=== PATIENT | female | born 1990 | race Caucasian/White ===

== ENCOUNTER 2016-04-05 10:50 | Emergency (ER) | payer MEDICAID ==
[2016-04-05 11:00] VITALS: RESP 16; TEMP 97.9
[2016-04-05] MEDS ORDERED: IBUPROFEN 600 MG TAB PO ONE (13:27)
--- NOTE | 2016-04-05 14:31 | EDPHY ---
H & P Stated Complaint: jaw wont open Time Seen by Provider: 04/05/16 14:26 HPI/ROS: CHIEF COMPLAINT: HISTORY OF PRESENT ILLNESS: The patient is a 26 year old female presenting with REVIEW OF SYSTEMS: Aside from elements discussed in the HPI, a comprehensive 10-point review of systems was reviewed and is negative. PAST MEDICAL HISTORY: SOCIAL HISTORY: VITAL SIGNS: Reviewed by me GENERAL: Well-developed, well-nourished, resting comfortably in no respiratory distress. HEENT: Atraumatic. Eyes: No icterus, no injection. Mouth: moist mucous membranes. No erythema or lesions. Neck: supple with no adenopathy. LUNGS: Clear to auscultation bilaterally, no wheezes, rhonchi or rales. CARDIAC: Regular rate and rhythm, no rubs, murmurs or gallops. ABDOMEN: Soft, nontender, nondistended, bowel sounds normal. BACK: No CVA tenderness. EXTREMITIES: No trauma. No edema. Range of motion is normal throughout. NEURO: Alert and oriented, grossly nonfocal. SKIN: Warm and dry, no rash. PSYCHIATRIC: Normal mentation, no agitation. Portions of this note were transcribed by a medical technologist. I personally performed a history, physical exam, medical decision making, and confirmed accuracy of information the transcribed note. - Personal History LMP (Females 10-55): 8-14 Days Ago Current Tetanus/Diphtheria Vaccine: Yes Tetanus Vaccine Date: 2005 - Medical/Surgical History Hx Asthma: No Hx Chronic Respiratory Disease: No Hx Diabetes: No Hx Cardiac Disease: No Hx Renal Disease: No Hx Cirrhosis: No Hx Alcoholism: No Hx HIV/AIDS: No Hx Splenectomy or Spleen Trauma: No Other PMH: sinusitis. 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 menstrual cramps/chronic abd pain. fx sacrum in 2008, gastritis, ?endometrosis - Social History Smoking Status: Former smoker Constitutional: Initial Vital Signs Temperature (C) 36.6 C 04/05/16 10:57 Heart Rate 89 04/05/16 10:57 Respiratory Rate 16 04/05/16 10:57 Blood Pressure 98/77 L 04/05/16 10:57 O2 Sat (%) 95 04/05/16 10:57 O2 Delivery Mode Room Air Allergies/Adverse Reactions: cefaclor [From Ceclor] Allergy (Mild, Verified 04/05/16 10:56) Rash Home Medications: Medication Instructions Recorded Acyclovir 02/01/16 Dicyclomine HCl 02/08/16 IBUPROFEN 02/08/16 Medical Decision Making - Data Points Medications Given: Discontinued Medications Ibuprofen (Motrin) 600 mg PO EDNOW ONE Stop: 04/05/16 13:28 Last Admin: 04/05/16 13:29 Dose: 600 mg
--- NOTE | 2016-04-05 14:52 | EDPHY ---
H & P Time Seen by Provider: 04/05/16 14:26 HPI/ROS: CHIEF COMPLAINT: Jaw tightness. HISTORY OF PRESENT ILLNESS: The patient is a 26-year-old female who presents with jaw tightness since last night. The tightness began after she had a bad panic attack. She admits associated moderate jaw pain and the pain is worsened when she tries to open her mouth. She does state that her jaw "comes out of place whenever I open it." She feels better now after ibuprofen. She denies headache, vomiting, dizziness, fever, or other complaints at this time. Past Medical/Surgical History: Sinusitis, gastritis, herpes, hernia repair. Social History: Former smoker. Smoking Status: Former smoker Physical Exam: General Appearance: Alert, no distress Eyes: Pupils equal and round, no conjunctival pallor ENT, Mouth: able to open the mouth fully, there is a clicking sound when she opens her mouth, tenderness over the temporalis musculature bilaterally, Mucous membranes moist Neck: Normal inspection, no tenderness or neck adenopathy Respiratory: Lungs are clear to auscultation Cardiovascular: Regular rate and rhythm Neurological: A&O, nonfocal, normal gait Skin: Warm and dry, no rash Psychiatric: Mood and affect normal Constitutional: Initial Vital Signs Temperature (C) 36.6 C 04/05/16 10:57 Heart Rate 89 04/05/16 10:57 Respiratory Rate 16 04/05/16 10:57 Blood Pressure 98/77 L 04/05/16 10:57 O2 Sat (%) 95 04/05/16 10:57 O2 Delivery Mode Room Air Allergies/Adverse Reactions: cefaclor [From Ceclor] Allergy (Mild, Verified 04/05/16 10:56) Rash Home Medications: Medication Instructions Recorded Acyclovir 02/01/16 Dicyclomine HCl 02/08/16 IBUPROFEN 02/08/16 Medical Decision Making - Diagnostics Imaging: Mandible x-ray reviewed by me and radiology reveals no dislocation. ED Course/Re-evaluation: No evidence of mandible dislocation. - Data Points Medications Given: Discontinued Medications Ibuprofen (Motrin) 600 mg PO EDNOW ONE Stop: 04/05/16 13:28 Last Admin: 04/05/16 13:29 Dose: 600 mg Departure - Departure Disposition: Home, Routine, Self-Care Clinical Impression: Jaw Tightness Condition: Good Instructions: Temporomandibular Disorder (ED) Additional Instructions: Eat soft foods for the next 48 hours. Take 600mg Ibuprofen every 6-8 hours as needed for jaw pain. Follow up with your primary care provider tomorrow for reevaluation and to connect with an oral surgeon. Return to the emergency department for serious worsening of condition. Referrals: Claire Calixto NP [Primary Care Provider] - As per Instructions Report Scribed for: Jessica Raygoza Report Scribed by: Silvano Mahajan Date of Report: 04/05/16 Time of Report: 14:51 Physician Review and Approval Statement: 04/05/16 14:52 Portions of this note were transcribed by a medical scheduler. I personally performed a history, physical exam, medical decision making, and confirmed accuracy of information the transcribed note.
[2016-04-05 15:24] VITALS: BP 121/93; PULSE 92; O2SAT 96
--- NOTE | 2016-04-05 15:38 | DX ---
Mandible - 4 views Indication: Jaw popping. Findings: The mandible is anatomically aligned. No dislocation. No fracture or bone lesion. Condyles are normally formed. The nasal septum is deviated to the left. The paranasal sinuses are otherwise c lear. IMPRESSION: Normal mandible alignment. No dislocation or arthropathy. Comment: Results were called to Dr. Jessica Raygoza shortly after study completion.
== END 2016-04-05 15:23 | disposition home or self-care (01) ==
DX: M62.89 Other specified disorders of muscle (principal); Z87.891 Personal history of nicotine dependence

== ENCOUNTER 2016-04-24 14:41 | Emergency (ER) | payer MEDICAID ==
[2016-04-24 14:49] VITALS: TEMP 97.7; O2SAT 96
[2016-04-24] MEDS ORDERED: LORazepam 1 MG TAB ONE (15:14)
[2016-04-24] MEDS ORDERED: LORazepam 1 MG TAB PO ONE (15:17)
--- NOTE | 2016-04-24 15:38 | EDPHY ---
HPI/HX/ROS/PE/MDM Narrative: Chief complaint: Anxiety HPI: Patient has been having increasing anxiety this week. Patient states she has a history anxiety and carmen which she has been self medicating with marijuana stranding. The marijuana use. [facility] he is feeling very anxious. PAtient states she has been having increasing anxiety this week has been arguing with her boyfriend today today she woke up feeling very shaky and anxious like she is having a panic attack. Mental [facility] and [facility] staff there began getting even more anxious feeling. They brought her over for evaluation. PAtient states that she is having some vague suicidal thoughts but does not feel she will act on it. She has no plan. More has a feeling of feeling that she just does not want to be in this situation but she does not want to . NO homicidal ideation. No hallucinations. ROS: Ten point review of systems is negative except as noted in HPI physical exam: Gen: Awake, Alert, No Distress, Anxious appearing HEENT: Ears: Bilateral TMs are normal, no erythema or bulging. External auditory canals are clear. Nose: no rhinorrhea Eyes: PERRLA, EOMI Mouth: Moist mucosa Neck: Supple, no JVD Chest: nontender, lungs clear to auscultation Heart: S1, S2 normal, no murmur Abd: Soft, non-tender, no guarding Back: no CVA tenderness, no midline tenderness Ext: no edema, non-tender Skin: no rash Neuro: CN II-XII intact, Sensation grossly intact, Strength 5/5 in bilateral upper and lower extremities ED Course: 26-year-old presenting with anxiety reaction. Patient is not currently suicidal and is christy for safety. Plan will be to give her some Ativan here. [facility] They have indicated that when she is feeling better they will be happy to take her back to continue evaluation and counseling. 1745 patient is feeling much better after medication. She is calm and relaxed. Denies being suicidal at this time. Would like to go back to [facility] for further evaluation. She does not currently meet criteria for mental health hold. Will contact crisis Center to make sure that they are happy to take her back. If sexual back for further evaluation. - Data Points Medications Given: Discontinued Medications Lorazepam (Ativan) 1 mg PO EDNOW ONE Stop: 04/24/16 15:18 Last Admin: 04/24/16 15:17 Dose: 1 mg General Time Seen by Provider: 04/24/16 15:15 Initial Vital Signs: Initial Vital Signs Temperature (C) 36.5 C 04/24/16 14:46 Heart Rate 105 H 04/24/16 14:46 Respiratory Rate 18 04/24/16 14:46 Blood Pressure 120/86 H 04/24/16 14:46 O2 Sat (%) 96 04/24/16 14:46 O2 Delivery Mode Room Air Allergies/Adverse Reactions: cefaclor [From Ceclor] Allergy (Mild, Verified 04/05/16 10:56) Rash Home Medications: Medication Instructions Recorded Dicyclomine HCl 02/08/16 Departure - Departure Disposition: Home, Routine, Self-Care Clinical Impression: Anxious reaction Condition: Good Instructions: Anxiety (ED) Additional Instructions: [facility] for further evaluation. Return to the emergency department immediately for increasing anxiety, depression, feelings of suicidal, hallucinations, or any other concerns. Referrals: [place],. [Primary Care Provider] - As per Instructions [facility] [Outside] - As per Instructions
[2016-04-24] MEDS ORDERED: LORAZEPAM 1 MG PREPACK#4 BTL TAKEHOME ONE ×2 (18:34)
[2016-04-24 18:45] VITALS: BP 116/89; PULSE 100; RESP 16
== END 2016-04-24 18:45 | disposition home or self-care (01) ==
DX: F41.1 Generalized anxiety disorder (principal)

== ENCOUNTER 2016-04-29 03:06 | Emergency (ER) | payer MEDICAID ==
[2016-04-29 03:11] VITALS: RESP 16
[2016-04-29] MEDS ORDERED: KETOROLAC 30 MG/1 ML SDV IVP ONE (03:25)
[2016-04-29] MEDS ORDERED: NS 1,000 ML IV ONE (04:00)
--- NOTE | 2016-04-29 04:18 | EDPHY ---
H & P Stated Complaint: c/o bilat LQ pain since yesterday am, having frequency/ urgency as well Time Seen by Provider: 04/29/16 03:16 HPI/ROS: Chief complaint: Low abdominal pain, urinary frequency HPI: 26-year-old female with a history of endometriosis currently on day 3 of her menstrual cycle complaining of low abdominal cramping similar to prior episodes. Last took any medications about 9 o'clock at night. No nausea or vomiting. No diarrhea. Patient did state she woke up and she felt some increasing cramping. She started to breathe heavily is an rapidly, felt cramping in her hands and some numbness around her mouth. Also began feeling a little lightheaded at that time. Patient states that she has had some urinary frequency for the last 2 days. Has had some burning with urination as well. Otherwise her pain feels the same as her prior episodes of menstrual cramping. ROS: 10 point Review of Systems is negative except as noted in the HPI. Physical exam: Gen: Awake, Alert, No Distress HEENT: Ears: Bilateral TMs are normal, no erythema or bulging. External auditory canals are clear. Nose: no rhinorrhea Eyes: PERRLA, EOMI Mouth: Moist mucosa Neck: Supple, no JVD Chest: nontender, lungs clear to auscultation Heart: S1, S2 normal, no murmur Abd: Soft, mild bilateral lower abdominal tenderness with uterine tenderness, minimal bilateral adnexal tenderness without fullness or mass. No tenderness in the upper abdomen. No tenderness at McBurney's point., no guarding Back: no CVA tenderness, no midline tenderness Ext: no edema, non-tender Skin: no rash Neuro: CN II-XII intact, Sensation grossly intact, Strength 5/5 in bilateral upper and lower extremities - Personal History Tetanus Vaccine Date: 2005 - Medical/Surgical History Hx Asthma: No Hx Chronic Respiratory Disease: No Hx Diabetes: No Hx Cardiac Disease: No Hx Renal Disease: No Hx Cirrhosis: No Hx Alcoholism: No Hx HIV/AIDS: No Hx Splenectomy or Spleen Trauma: No Other PMH: sinusitis. 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 menstrual cramps/chronic abd pain. fx sacrum in 2008, gastritis, ?endometrosis - Social History Smoking Status: Former smoker Constitutional: Initial Vital Signs Temperature (C) 36.7 C 04/29/16 03:08 Heart Rate 59 L 04/29/16 03:08 Respiratory Rate 16 04/29/16 03:08 Blood Pressure 103/71 04/29/16 03:08 O2 Sat (%) 93 04/29/16 03:08 O2 Delivery Mode Room Air Allergies/Adverse Reactions: cefaclor [From Ceclor] Allergy (Mild, Verified 04/29/16 03:11) Rash Home Medications: Medication Instructions Recorded Dicyclomine HCl 02/08/16 Acyclovir 04/29/16 BENADRYL 04/29/16 Medical Decision Making ED Course/Re-evaluation: 26-year-old with a history of chronic menstrual pain, multiple presentations in the past. Patient states she is same pain as she has frequently however this time she has some urinary symptoms of burning with urination and frequency. Will check urinalysis. Will give IV anti-inflammatories and reassess. - Data Points Laboratory Results: 04/29/16 03:27 Urine Color YELLOW Urine Appearance MODERATELY TURBID Urine pH 5.0 (5.0-7.5) Ur Specific [place] 1.024 (1.002-1.030) Urine Protein 1+ H (NEGATIVE) Urine Ketones NEGATIVE (NEGATIVE) Urine Blood 3+ H (NEGATIVE) Urine Nitrate NEGATIVE (NEGATIVE) Urine Bilirubin NEGATIVE (NEGATIVE) Urine Urobilinogen NEGATIVE EU EU (0.2-1.0) Ur Leukocyte Esterase 2+ H (NEGATIVE) Urine RBC 5-10 /hpf H /hpf (0-3) Urine WBC 15-25 /hpf H /hpf (0-3) Ur Epithelial Cells 2+ /lpf H /lpf (NONE-1+) Urine Bacteria TRACE /hpf H /hpf (NONE SEEN) Urine Mucus 2+ /lpf H /lpf (NONE-1+) Urine Glucose NEGATIVE (NEGATIVE) Medications Given: Discontinued Medications Sodium Chloride (Ns) 1,000 mls @ 0 mls/hr IV ONCE ONE PRN Reason: Wide Open Stop: 04/29/16 04:01 Last Admin: 04/29/16 04:00 Dose: 1,000 mls Ketorolac Tromethamine (Toradol) 30 mg IVP EDNOW ONE Stop: 04/29/16 03:26 Last Admin: 04/29/16 03:45 Dose: 30 mg Departure - Departure Disposition: Home, Routine, Self-Care Clinical Impression: Dysmenorrhea Condition: Good Instructions: Dysmenorrhea (ED) Additional Instructions: Follow up with her lens inspector or primary care physician in next 2-3 days for re- evaluation. Referrals: Claire Calixto NP [Primary Care Provider] - As per Instructions
[2016-04-29 04:48] LABS: COLOR YELLOW; LEUKOCYTE ESTERASE,URINE 2+ (NEGATIVE); NITRITE,URINE NEGATIVE (NEGATIVE)
[2016-04-29 04:49] LABS: BACTERIA TRACE /hpf (NONE SEEN); MUCUS 2+ /lpf (NONE-1+); WBC,URINE 15-25 /hpf (0-3)
[2016-04-29 05:11] VITALS: BP 92/50; PULSE 66; TEMP 97.7; O2SAT 97
== END 2016-04-29 05:40 | disposition home or self-care (01) ==
LOC: EDUNIT#
DX: N94.6 Dysmenorrhea, unspecified (principal); Z87.891 Personal history of nicotine dependence
CPT/HCPCS: 96374; J1885

== ENCOUNTER 2016-05-24 12:05 | Emergency (ER) | payer MEDICAID ==
[2016-05-24 12:47] LABS: % IMMATURE GRANULYOCYTES 0.2 % (0.0-1.1); ABSOLUTE IMMATURE GRANULOCYTES 0.02 10^3/uL (0.00-0.10); ADD DIFF? NO; ADD MORPH? NO; ADD SCAN? NO; ATYPICAL LYMPHOCYTE FLAG 20 (0-99); FRAGMENT RBC FLAG 0 (0-99); HEMATOCRIT 36.8 % (38.0-47.0); HEMOGLOBIN 12.5 g/dL (12.6-16.3); LEFT SHIFT FLG 0 (0-99); LIPEMIA HEMOLYSIS FLAG 90 (0-99); MEAN CELL HEMOGLOBIN 30.7 pg (27.9-34.1); MEAN CELL VOLUME 90.4 fL (81.5-99.8); PLATELET CLUMPS FLAG 10 (0-99); PLATELET COUNT 236 10^3/uL (150-400); RED BLOOD CELL COUNT 4.07 10^6/uL (4.18-5.33); RED CELL DISTRIBUTION WIDTH 12.6 % (11.5-15.2)
[2016-05-24 13:01] LABS: ANION GAP 11 mEq/L (8-16); CALCIUM 9.4 mg/dL (8.5-10.4); CARBON DIOXIDE 22 mEq/l (22-31); CHLORIDE 108 mEq/L (97-110); CREATININE 0.7 mg/dL (0.6-1.0); GLOMERULAR FILTRATION RATE > 60; GLUCOSE 84 mg/dL (70-100); POTASSIUM 4.2 mEq/L (3.5-5.2); SODIUM 141 mEq/L (134-144)
[2016-05-24] MEDS ORDERED: KETOROLAC 30 MG/1 ML SDV IVP ONE (13:27)
[2016-05-24 13:46] LABS: COLOR PALE YELLOW; LEUKOCYTE ESTERASE,URINE NEGATIVE (NEGATIVE); NITRITE,URINE NEGATIVE (NEGATIVE)
[2016-05-24 13:54] LABS: BACTERIA TRACE /hpf (NONE SEEN); RBC,URINE NONE SEEN /hpf (0-3); WBC,URINE NONE SEEN /hpf (0-3)
--- NOTE | 2016-05-24 14:07 | EDPHY ---
H & P Stated Complaint: lower abdo and back pain, thinks she has an ovarian cyst. Time Seen by Provider: 05/24/16 12:18 HPI/ROS: Chief complaint: Pelvic pain History of present illness: 26-year-old female presents to the emergency department for evaluation of pelvic pain. Patient reports the onset of symptoms over the last day. She reports pain on both the left and right side. She denies precipitating events. She denies alleviating factors. She denies other associated signs or symptoms including no fevers, no nausea, vomiting or diarrhea, no urinary symptoms, no abnormal vaginal discharge. She has had similar pain multiple times in the past. Reports she has been diagnosed with endometriosis. However she is concerned this is more than endometriosis, possibly an ovarian cyst. She is requesting Toradol for pain management. Review of systems: A 10 point review of systems was obtained and other than described above was negative - Personal History LMP (Females 10-55): Now Tetanus Vaccine Date: 2005 - Medical/Surgical History Hx Asthma: No Hx Chronic Respiratory Disease: No Hx Diabetes: No Hx Cardiac Disease: No Hx Renal Disease: No Hx Cirrhosis: No Hx Alcoholism: No Hx HIV/AIDS: No Hx Splenectomy or Spleen Trauma: No Other PMH: sinusitis. 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 menstrual cramps/chronic abd pain. fx sacrum in 2008, gastritis, ?endometrosis - Social History Smoking Status: Never smoked - Physical Exam Exam: General Appearance: Alert, nontoxic. Eyes: Pupils equal and round no pallor or injection. ENT, Mouth: Mucous membranes moist. Respiratory: There are no retractions, lungs are clear to auscultation. Cardiovascular: Regular rate and rhythm. Gastrointestinal: Abdomen is soft and nontender, no masses, bowel sounds normal. Genitourinary: No CVA tenderness. Neurological: Alert and oriented. Strength and sensation intact and symmetrical. Skin: Warm and dry, no rashes. Musculoskeletal: Neck is supple nontender. Extremities are symmetrical, full range of motion. Psychiatric: Patient is oriented X 3, there is no agitation. Constitutional: Initial Vital Signs Temperature (C) 36.6 C 05/24/16 12:08 Heart Rate 75 05/24/16 12:08 Respiratory Rate 16 05/24/16 12:08 Blood Pressure 107/77 05/24/16 12:08 O2 Sat (%) 96 05/24/16 12:08 O2 Delivery Mode Room Air Allergies/Adverse Reactions: cefaclor [From Ceclor] Allergy (Mild, Verified 04/29/16 03:11) Rash Home Medications: Medication Instructions Recorded Dicyclomine HCl 02/08/16 Acyclovir 04/29/16 BENADRYL 04/29/16 Medical Decision Making - Diagnostics Imaging: Pelvic ultrasound shows a dominant follicle/left ovarian cyst in the left ovary ED Course/Re-evaluation: Patient seen under the supervision of my secondary supervising physician Dr. Pedro Sterling. Patient presents to the emergency department with pelvic pain. She has a history of similar problems thought to be secondary to endometriosis. However this is worse than usual and she is concerned that this is more than endometriosis. She is nontoxic. Vital signs are stable. Physical exam is benign. Blood studies and urinalysis unremarkable. Questionable ovarian cyst on left ovary without complications on ultrasound. Patient is given Toradol. I do not appreciate need for further emergency department intervention or inpatient management. Patient is discharged home. Asked to follow up with her primary care doctor for recheck. Return precautions are given. - Data Points Laboratory Results: Laboratory Results 05/24/16 12:35 05/24/16 12:35 05/24/16 05/24/16 05/24/16 13:35 12:35 12:35 WBC RBC Hgb Hct MCV MCH MCHC RDW Plt Count MPV Neut % (Auto) Lymph % (Auto) [place] % (Auto) Eos % (Auto) Baso % (Auto) Nucleat RBC Rel Count Absolute Neuts (auto) Absolute Lymphs (auto) Absolute Monos (auto) Absolute Eos (auto) Absolute Basos (auto) Absolute Nucleated RBC Immature Gran % Immature Gran # Sodium 141 mEq/L mEq/L (134-144) Potassium 4.2 mEq/L mEq/L (3.5-5.2) Chloride 108 mEq/L mEq/L (97-110) Carbon Dioxide 22 mEq/l mEq/l (22-31) Anion Gap 11 mEq/L mEq/L (8-16) BUN 10 mg/dL mg/dL (7-23) Creatinine 0.7 mg/dL mg/dL (0.6-1.0) Estimated GFR > 60 Glucose 84 mg/dL mg/dL (70-100) Calcium 9.4 mg/dL mg/dL (8.5-10.4) Beta HCG, Qual NEGATIVE Urine Color PALE YELLOW Urine Appearance CLEAR Urine pH 5.0 (5.0-7.5) Ur Specific [place] 1.008 (1.002-1.030) Urine Protein NEGATIVE (NEGATIVE) Urine Ketones NEGATIVE (NEGATIVE) Urine Blood 3+ H (NEGATIVE) Urine Nitrate NEGATIVE (NEGATIVE) Urine Bilirubin NEGATIVE (NEGATIVE) Urine Urobilinogen NEGATIVE EU EU (0.2-1.0) Ur Leukocyte Esterase NEGATIVE (NEGATIVE) Urine RBC NONE SEEN /hpf /hpf (0-3) Urine WBC NONE SEEN /hpf /hpf (0-3) Ur Epithelial Cells TRACE /lpf /lpf (NONE-1+) Urine Bacteria TRACE /hpf H /hpf (NONE SEEN) Ur Culture Indicated? NOT INDICATED (NI) Urine Glucose NEGATIVE (NEGATIVE) 05/24/16 12:35 WBC 8.11 10^3/uL 10^3/uL (3.80-9.50) RBC 4.07 10^6/uL L 10^6/uL (4.18-5.33) Hgb 12.5 g/dL L g/dL (12.6-16.3) Hct 36.8 % L % (38.0-47.0) MCV 90.4 fL fL (81.5-99.8) MCH 30.7 pg pg (27.9-34.1) MCHC 34.0 g/dL g/dL (32.4-36.7) RDW 12.6 % % (11.5-15.2) Plt Count 236 10^3/uL 10^3/uL (150-400) MPV 11.0 fL fL (8.7-11.7) Neut % (Auto) 65.2 % % (39.3-74.2) Lymph % (Auto) 28.0 % % (15.0-45.0) [place] % (Auto) 4.9 % % (4.5-13.0) Eos % (Auto) 1.5 % % (0.6-7.6) Baso % (Auto) 0.2 % L % (0.3-1.7) Nucleat RBC Rel Count 0.0 % % (0.0-0.2) Absolute Neuts (auto) 5.28 10^3/uL 10^3/uL (1.70-6.50) Absolute Lymphs (auto) 2.27 10^3/uL 10^3/uL (1.00-3.00) Absolute Monos (auto) 0.40 10^3/uL 10^3/uL (0.30-0.80) Absolute Eos (auto) 0.12 10^3/uL 10^3/uL (0.03-0.40) Absolute Basos (auto) 0.02 10^3/uL 10^3/uL (0.02-0.10) Absolute Nucleated RBC 0.00 10^3/uL 10^3/uL (0-0.01) Immature Gran % 0.2 % % (0.0-1.1) Immature Gran # 0.02 10^3/uL 10^3/uL (0.00-0.10) Sodium Potassium Chloride Carbon Dioxide Anion Gap BUN Creatinine Estimated GFR Glucose Calcium Beta HCG, Qual Urine Color Urine Appearance Urine pH Ur Specific [place] Urine Protein Urine Ketones Urine Blood Urine Nitrate Urine Bilirubin Urine Urobilinogen Ur Leukocyte Esterase Urine RBC Urine WBC Ur Epithelial Cells Urine Bacteria Ur Culture Indicated? Urine Glucose Medications Given: Discontinued Medications Ketorolac Tromethamine (Toradol) 30 mg IVP EDNOW ONE Stop: 05/24/16 13:28 Last Admin: 05/24/16 13:39 Dose: 30 mg Departure - Departure Disposition: Home, Routine, Self-Care Clinical Impression: Ovarian cyst Qualifiers: Laterality: left Qualified Code(s): N83.202 - Unspecified ovarian cyst, left side Condition: Good Instructions: Ovarian Cyst (ED) Additional Instructions: Follow-up with your primary care doctor for recheck this week If symptoms worsen or new symptoms develop return to the emergency department for recheck Referrals: CARMELO BUCKLEY [Other] - As per Instructions
[2016-05-24 14:21] VITALS: BP 99/61; PULSE 73; RESP 18; TEMP 98.2; O2SAT 98
== END 2016-05-24 14:26 | disposition home or self-care (01) ==
DX: N83.202 Unspecified ovarian cyst, left side (principal)
CPT/HCPCS: 96374; J1885

== ENCOUNTER 2016-05-25 11:15 | Emergency (ER) | payer MEDICAID ==
[2016-05-25 11:26] VITALS: TEMP 97.7; O2SAT 97
[2016-05-25 12:51] VITALS: BP 106/86; PULSE 71; RESP 18
[2016-05-25] MEDS ORDERED: KETOROLAC 30 MG/1 ML SDV IVP ONE (13:14)
--- NOTE | 2016-05-25 13:15 | EDPHY ---
H & P Stated Complaint: dx yesterday in ed with ovarian cyst/vag bleeding intractible pain Time Seen by Provider: 05/25/16 13:00 HPI/ROS: HPI: 26-year-old female with 27 ER visits since March 14 and and ER visit yesterday presents to the emergency department with chief concern painful period and lower pelvic discomfort. Denies fever, chills, myalgias, URI symptoms, shortness of breath, chest pain, nausea, vomiting, diarrhea, rash, urinary symptoms. Was evaluated in the emergency department yesterday. Pelvic and renal ultrasound were performed and did show a prominent left follicle but no significant cyst. Had a normal abdominal CT on June 18. Has a history of endometriosis and chronic abdominal pain. Primary care provider is Dr. larose at [facility]. She is on narcotic precautions. ROS:10 point review of systems is negative other than as stated in HPI Source: Patient Exam Limitations: No limitations - Personal History LMP (Females 10-55): Now Current Tetanus/Diphtheria Vaccine: Unsure Tetanus Vaccine Date: 2005 - Medical/Surgical History Hx Asthma: No Hx Chronic Respiratory Disease: No Hx Diabetes: No Hx Cardiac Disease: No Hx Renal Disease: No Hx Cirrhosis: No Hx Alcoholism: No Hx HIV/AIDS: No Hx Splenectomy or Spleen Trauma: No Other PMH: sinusitis. 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 menstrual cramps/chronic abd pain. fx sacrum in 2008, gastritis, ?endometrosis - Family History Significant Family History: No pertinent family hx - Social History Smoking Status: Never smoked Alcohol Use: Rarely Drug Use: Other (Unknown) - Physical Exam Exam: Vital signs stable, reviewed by me General: Awake, alert, calm, cooperative. No acute distress. Head: Normalocephalic. Atraumatic. EENT: PERRLA. EOMI. No pallor or injection. Anicteric. No nystagmus. No injection. Respiratory: Breathing unlabored. Breath sounds equal bilaterally and clear to auscultation. No adventitious sounds. CV: Chest nontender, atraumatic. Heart rate regular. No murmur, distal pulses 2+ bilaterally. Brisk cap refill all extremities. GI: Abdomen soft, generalized tenderness. No right lower quadrant or right upper quadrant tenderness. Bowel sounds normoactive and positive x4 quadrants. : No CVA or flank tenderness. Neuro: Alert. Oriented x 3. Speech clear. Nonfocal cranial nerves throughout. Sensation intact all extremities. Skin: Skin warm, dry, intact. Extremities: Full range of motion in all 4 extremities. Strength 5+ all extremities. Constitutional: Initial Vital Signs Temperature (C) 36.5 C 05/25/16 11:24 Heart Rate 73 05/25/16 11:24 Respiratory Rate 20 05/25/16 11:24 Blood Pressure 106/83 H 05/25/16 11:24 O2 Sat (%) 97 05/25/16 11:24 O2 Delivery Mode Room Air Allergies/Adverse Reactions: cefaclor [From Ceclor] Allergy (Mild, Verified 05/25/16 11:23) Rash Home Medications: Medication Instructions Recorded Dicyclomine HCl 02/08/16 Acyclovir 04/29/16 BENADRYL 04/29/16 Medical Decision Making ED Course/Re-evaluation: 26-year-old female presents to emergency department with ongoing a lower pelvic and abdominal pain. She is on day 3 of her period. Has a history of endometriosis and chronic abdominal pain. Was evaluated in the emergency department yesterday with a unremarkable pelvic and renal ultrasound. Urinalysis negative for UTI yesterday. H&H was 12.5/36.8, her BUN and creatinine were 10 and 0.7. She has a follow-up appointment with her primary care provider tomorrow at [facility]. She returns for ongoing lower pelvic and abdominal discomfort. She is given 30 mg IV Toradol. I will not give her narcotics as she is on a narcotic precautions list for the hospital. She has been counseled regarding this. She has been advised to follow up as planned with primary care tomorrow. Differential Diagnosis: Differential diagnosis includes but is not limited to dysmenorrhea, endometriosis, drug-seeking behavior, malingering Departure - Departure Disposition: Home, Routine, Self-Care Clinical Impression: Dysmenorrhea Condition: Good Instructions: Dysmenorrhea (ED) Additional Instructions: Please follow up in the morning with Dr. Solomon as scheduled You were given given 30 mg IV Toradol here in the emergency department No ibuprofen until 7:00 p.m. Recommend heating pad for the abdomen Referrals: CARMELO SOLOMON [Other] - As per Instructions
[2016-05-25] MEDS ORDERED: KETOROLAC 30 MG/1 ML SDV IM ONE (13:43)
== END 2016-05-25 13:58 | disposition home or self-care (01) ==
DX: N94.6 Dysmenorrhea, unspecified (principal)
CPT/HCPCS: J1885

== ENCOUNTER 2016-07-18 15:13 | Emergency (ER) | payer MEDICAID ==
[2016-07-18 15:18] VITALS: RESP 16
--- NOTE | 2016-07-18 15:22 | EDPHY ---
H & P Time Seen by Provider: 07/18/16 15:20 HPI/ROS: Chief complaint. Head injury HPI. 26-year-old female with head injury. It occurred 2 and 0.5 hours ago. She was at work and she stood up and hit her head on a metal shelf. She had a metallic taste that went through her body. No loss of consciousness. No neck pain. She feels slightly disoriented. Slight nausea. No bumps were cut to the head ROS Constitutional. no fever/chills, no weakness Eyes. no problems with vision ENT. no sore throat, no nasal drainage Cardiovascular. no chest pain Respiratory. no shortness of breath, no cough Abdominal. no abdominal pain, no nausea/vomiting, no diarrhea . no problems urinating MS. no calf pain/swelling, no neck/back pain, no joint pain Skin. no rash Lymph. no swollen glands Neuro. Slightly dizzy Past Medical/Surgical History: Past medical history significant for endometriosis, sacrum fracture, chronic abdominal pain, sinusitis Social History: Single, nonsmoker, no alcohol Smoking Status: Never smoked Physical Exam: General Appearance: Alert well-developed female mild distress vital signs stable. She is conversational Eyes: Pupils equal and round no pallor or injection. ENT, no hemotympanum or Herron sign. No bumps for cut to the scalp. Respiratory: There are no retractions, lungs are clear to auscultation. Cardiovascular: Regular rate and rhythm. Gastrointestinal: Abdomen is soft and nontender, no masses, bowel sounds normal. Neurological: Awake and alert, sensory and motor exams grossly normal. Speech is normal and conversational. Cranial nerves are intact. There is no pronator drift. Pcyrch-[id number] and [id number] and narrow based gait are intact Skin: Warm and dry, no rashes. Musculoskeletal: Neck is supple nontender. Extremities symmetrical, full range of motion. Psychiatric: Patient is oriented X 3, there is no agitation. Constitutional: Initial Vital Signs Temperature (C) 36.7 C 07/18/16 15:16 Heart Rate 102 H 07/18/16 15:16 Respiratory Rate 16 07/18/16 15:16 Blood Pressure 120/85 H 07/18/16 15:16 O2 Sat (%) 97 07/18/16 15:16 O2 Delivery Mode Room Air Allergies/Adverse Reactions: cefaclor [From [facility]] Allergy (Mild, Verified 05/25/16 11:23) Rash Medical Decision Making Procedures: Tylenol and Zofran given ED Course/Re-evaluation: Re-evaluation and patient remained stable and conversational and neurologically intact Patient and I discussed head injury precautions, treatment plan, criteria for return. She expresses understanding and agreement Differential Diagnosis: I considered head contusion, skull fracture, intracranial bleeding, concussion Departure - Departure Disposition: Home, Routine, Self-Care Clinical Impression: Head contusion Qualifiers: Encounter type: initial encounter Contusion of head detail: scalp Qualified Code(s): S00.03XA - Contusion of scalp, initial encounter Condition: Good Instructions: Head Injury (ED) Additional Instructions: Tylenol every 4-6 hours as needed for headache. Return for worsening headache, vomiting, confusion. Recheck in 2 days if not improved Referrals: AMRIT SOLOMON [Other] - 2-3 days, if not improved
[2016-07-18] MEDS ORDERED: ONDANSETRON DISINTEGRATING 4 MG TAB PO ONE (15:35)
[2016-07-18] MEDS ORDERED: ACETAMINOPHEN 500 MG TAB PO ONE (15:35)
[2016-07-18 15:50] VITALS: BP 128/79; PULSE 80; TEMP 97.9; O2SAT 96
== END 2016-07-18 15:46 | disposition home or self-care (01) ==
DX: S00.03XA Contusion of scalp, initial encounter (principal); W22.8XXA Striking against or struck by other objects, initial encounter; Y92.69 Other specified industrial and construction area as the place of occurrence of the external cause; Y99.0 Civilian activity done for income or pay; Y93.89 Activity, other specified

== ENCOUNTER 2016-08-23 12:41 | Emergency (ER) | payer MEDICAID ==
[2016-08-23 12:51] VITALS: RESP 16; TEMP 97.7
[2016-08-23 13:21] LABS: % IMMATURE GRANULYOCYTES 0.2 % (0.0-1.1); ABSOLUTE IMMATURE GRANULOCYTES 0.02 10^3/uL (0.00-0.10); ADD DIFF? NO; ADD MORPH? NO; ADD SCAN? NO; ATYPICAL LYMPHOCYTE FLAG 10 (0-99); FRAGMENT RBC FLAG 0 (0-99); HEMATOCRIT 37.7 % (38.0-47.0); HEMOGLOBIN 13.1 g/dL (12.6-16.3); LEFT SHIFT FLG 0 (0-99); LIPEMIA HEMOLYSIS FLAG 90 (0-99); MEAN CELL HEMOGLOBIN 31.4 pg (27.9-34.1); MEAN CELL HEMOGLOBIN CONCENTR. 34.7 g/dL (32.4-36.7); MEAN CELL VOLUME 90.4 fL (81.5-99.8); MEAN PLATELET VOLUME 10.5 fL (8.7-11.7); PLATELET CLUMPS FLAG 0 (0-99); PLATELET COUNT 261 10^3/uL (150-400); RED BLOOD CELL COUNT 4.17 10^6/uL (4.18-5.33); RED CELL DISTRIBUTION WIDTH 12.4 % (11.5-15.2)
[2016-08-23 13:39] LABS: ALANINE AMINOTRANSFERASE 28 IU/L (9-52); ALBUMIN 4.5 g/dL (3.5-5.0); ALKALINE PHOSPHATASE 41 IU/L (38-126); ANION GAP 11 mEq/L (8-16); ASPARTATE AMINOTRANSFERASE 19 IU/L (14-46); BILIRUBIN,TOTAL 1.3 mg/dL (0.1-1.4); BILIRUBIN-CONJUGATED 0.2 mg/dL (0.0-0.5); BILIRUBIN-UNCONJUGATED 1.1 mg/dL (0.0-1.1); CALCIUM 9.3 mg/dL (8.5-10.4); CARBON DIOXIDE 19 mEq/l (22-31); CHLORIDE 108 mEq/L (97-110); CREATININE 0.7 mg/dL (0.6-1.0); GLOMERULAR FILTRATION RATE > 60; GLUCOSE 84 mg/dL (70-100); SODIUM 138 mEq/L (134-144); TOTAL PROTEIN 7.5 g/dL (6.3-8.2)
--- NOTE | 2016-08-23 13:54 | EDPHY ---
H & P Stated Complaint: RLQ abd pain, increased with breathing. Time Seen by Provider: 08/23/16 13:05 HPI/ROS: Chief complaint: Right-sided abdominal pain History of present illness: This is a 26-year-old female who presents to the emergency department for evaluation of right-sided abdominal pain. Patient reports the pain began a few days ago. It is a sharp pain. Is located in the upper aspect of the right side of the abdomen. It is intermittent in nature. She denies precipitating factors. She denies alleviating factors. She does states it is worse with certain movements. She denies other associated signs or symptoms including no fevers, chills or cold symptoms, no cough, no shortness of breath, no nausea or vomiting, no diarrhea or constipation, no urinary symptoms, no pain or swelling in the legs. Review of systems: A 10 point review of systems was obtained and other than described above was negative - Personal History LMP (Females 10-55): Now Current Tetanus/Diphtheria Vaccine: No Current Tetanus Diphtheria and Acellular Pertussis (TDAP): No Tetanus Vaccine Date: 2005 - Medical/Surgical History Hx Asthma: No Hx Chronic Respiratory Disease: No Hx Diabetes: No Hx Cardiac Disease: No Hx Renal Disease: No Hx Cirrhosis: No Hx Alcoholism: No Hx HIV/AIDS: No Hx Splenectomy or Spleen Trauma: No Other PMH: sinusitis. 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 menstrual cramps/chronic abd pain. fx sacrum in 2008, gastritis, ?endometrosis - Social History Smoking Status: Never smoked - Physical Exam Exam: General Appearance: Alert, nontoxic. Eyes: Pupils equal and round no pallor or injection. ENT, Mouth: Mucous membranes moist. Respiratory: There are no retractions, lungs are clear to auscultation. Cardiovascular: Regular rate and rhythm. Gastrointestinal: Bowel sounds are normal. Abdomen is soft, nondistended, nontender. No Woo sign. No McBurney's point tenderness. No peritoneal signs. Neurological: Alert and oriented x4. Strength and sensation intact and symmetrical. Skin: Warm and dry, no rashes. Musculoskeletal: Neck is supple non tender. Extremities are symmetrical, full range of motion. Psychiatric: Patient is oriented X 3, there is no agitation. Constitutional: Initial Vital Signs Temperature (C) 36.5 C 06/12/17 12:49 Heart Rate 90 08/23/16 12:49 Respiratory Rate 16 08/23/16 12:49 Blood Pressure 107/72 08/23/16 12:49 O2 Sat (%) 97 08/23/16 12:49 O2 Delivery Mode Room Air Allergies/Adverse Reactions: cefaclor [From Ceclor] Allergy (Mild, Verified 05/25/16 11:23) Rash Home Medications: Medication Instructions Recorded Cyclobenzaprine [Flexeril 10 MG 10 mg PO TID PRN #15 tab 08/23/16 (*)] Medical Decision Making ED Course/Re-evaluation: Patient seen under the supervision of my secondary supervising physician Dr. Casper Early. Patient presents to the emergency department for right upper abdominal pain. She is nontoxic. Afebrile and vital signs are stable. Abdominal exam is benign. Blood studies are unremarkable. I do not believe imaging studies of the abdomen are warranted given normal blood studies and benign abdomen exam. I do not believe this is a cardiopulmonary issue as she has no cold symptoms, no chest pain or shortness of breath or cough or signs of DVT, she is low risk for PE. Patient is given a dose of Toradol and is requesting muscle relaxants, she is given Flexeril. Patient is discharged home. She is asked to follow up with her primary care doctor for recheck. Strict return precautions are given. Patient voiced understanding and agreement with plan. Differential Diagnosis: Included but not limited to gastritis, gastroenteritis, biliary tract disease, pancreatitis, colitis, urinary tract disease, an associated complications, unlikely PE given she is perc negative - Data Points Laboratory Results: Laboratory Results 08/23/16 13:15 08/23/16 13:15 08/23/16 08/23/16 08/23/16 14:40 13:15 13:15 WBC RBC Hgb Hct MCV MCH MCHC RDW Plt Count MPV Neut % (Auto) Lymph % (Auto) [place] % (Auto) Eos % (Auto) Baso % (Auto) Nucleat RBC Rel Count Absolute Neuts (auto) Absolute Lymphs (auto) Absolute Monos (auto) Absolute Eos (auto) Absolute Basos (auto) Absolute Nucleated RBC Immature Gran % Immature Gran # Sodium 138 mEq/L mEq/L (134-144) Potassium 4.0 mEq/L mEq/L (3.5-5.2) Chloride 108 mEq/L mEq/L (97-110) Carbon Dioxide 19 mEq/l L mEq/l (22-31) Anion Gap 11 mEq/L mEq/L (8-16) BUN 13 mg/dL mg/dL (7-23) Creatinine 0.7 mg/dL mg/dL (0.6-1.0) Estimated GFR > 60 Glucose 84 mg/dL mg/dL (70-100) Calcium 9.3 mg/dL mg/dL (8.5-10.4) Total Bilirubin 1.3 mg/dL mg/dL (0.1-1.4) Conjugated Bilirubin 0.2 mg/dL mg/dL (0.0-0.5) Unconjugated Bilirubin 1.1 mg/dL mg/dL (0.0-1.1) AST 19 IU/L IU/L (14-46) ALT 28 IU/L IU/L (9-52) Alkaline Phosphatase 41 IU/L IU/L (38-126) Total Protein 7.5 g/dL g/dL (6.3-8.2) Albumin 4.5 g/dL g/dL (3.5-5.0) Lipase 83.0 IU/L IU/L (23-300) Beta HCG, Qual NEGATIVE Urine Color YELLOW Urine Appearance CLEAR Urine pH 7.0 (5.0-7.5) Ur Specific [place] 1.011 (1.002-1.030) Urine Protein NEGATIVE (NEGATIVE) Urine Ketones NEGATIVE (NEGATIVE) Urine Blood NEGATIVE (NEGATIVE) Urine Nitrate NEGATIVE (NEGATIVE) Urine Bilirubin NEGATIVE (NEGATIVE) Urine Urobilinogen NEGATIVE EU EU (0.2-1.0) Ur Leukocyte Esterase NEGATIVE (NEGATIVE) Urine RBC 1-3 /hpf /hpf (0-3) Urine WBC 1-3 /hpf /hpf (0-3) Ur Epithelial Cells TRACE /lpf /lpf (NONE-1+) Urine Mucus TRACE /lpf /lpf (NONE-1+) Urine Glucose NEGATIVE (NEGATIVE) 08/23/16 13:15 WBC 8.06 10^3/uL 10^3/uL (3.80-9.50) RBC 4.17 10^6/uL L 10^6/uL (4.18-5.33) Hgb 13.1 g/dL g/dL (12.6-16.3) Hct 37.7 % L % (38.0-47.0) MCV 90.4 fL fL (81.5-99.8) MCH 31.4 pg pg (27.9-34.1) MCHC 34.7 g/dL g/dL (32.4-36.7) RDW 12.4 % % (11.5-15.2) Plt Count 261 10^3/uL 10^3/uL (150-400) MPV 10.5 fL fL (8.7-11.7) Neut % (Auto) 62.3 % % (39.3-74.2) Lymph % (Auto) 29.4 % % (15.0-45.0) [facility] % (Auto) 6.3 % % (4.5-13.0) Eos % (Auto) 1.4 % % (0.6-7.6) Baso % (Auto) 0.4 % % (0.3-1.7) Nucleat RBC Rel Count 0.0 % % (0.0-0.2) Absolute Neuts (auto) 5.02 10^3/uL 10^3/uL (1.70-6.50) Absolute Lymphs (auto) 2.37 10^3/uL 10^3/uL (1.00-3.00) Absolute Monos (auto) 0.51 10^3/uL 10^3/uL (0.30-0.80) Absolute Eos (auto) 0.11 10^3/uL 10^3/uL (0.03-0.40) Absolute Basos (auto) 0.03 10^3/uL 10^3/uL (0.02-0.10) Absolute Nucleated RBC 0.00 10^3/uL 10^3/uL (0-0.01) Immature Gran % 0.2 % % (0.0-1.1) Immature Gran # 0.02 10^3/uL 10^3/uL (0.00-0.10) Sodium Potassium Chloride Carbon Dioxide Anion Gap BUN Creatinine Estimated GFR Glucose Calcium Total Bilirubin Conjugated Bilirubin Unconjugated Bilirubin AST ALT Alkaline Phosphatase Total Protein Albumin Lipase Beta HCG, Qual Urine Color Urine Appearance Urine pH Ur Specific [place] Urine Protein Urine Ketones Urine Blood Urine Nitrate Urine Bilirubin Urine Urobilinogen Ur Leukocyte Esterase Urine RBC Urine WBC Ur Epithelial Cells Urine Mucus Urine Glucose Medications Given: Discontinued Medications Ketorolac Tromethamine (Toradol) 15 mg IVP EDNOW ONE Stop: 08/23/16 15:14 Last Admin: 08/23/16 15:19 Dose: 15 mg Departure - Departure Disposition: Home, Routine, Self-Care Clinical Impression: Abdominal pain Qualifiers: Abdominal location: generalized Qualified Code(s): R10.84 - Generalized abdominal pain Condition: Good Instructions: Acute Abdominal Pain (ED) Additional Instructions: Follow-up with your primary care doctor for recheck If symptoms worsen or new symptoms develop return to the emergency room for recheck Referrals: NONE *PRIMARY CARE P,. [Primary Care Provider] - As per Instructions [facility],. [Clinic] - As per Instructions Prescriptions: Cyclobenzaprine [Flexeril 10 MG (*)] 10 mg PO TID PRN #15 tab PRN Reason: Spasms
[2016-08-23 14:52] LABS: COLOR YELLOW; LEUKOCYTE ESTERASE,URINE NEGATIVE (NEGATIVE); NITRITE,URINE NEGATIVE (NEGATIVE)
[2016-08-23 14:53] LABS: MUCUS TRACE /lpf (NONE-1+)
[2016-08-23] MEDS ORDERED: KETOROLAC 15 MG/1 ML SDV ONE (15:13)
[2016-08-23] MEDS ORDERED: KETOROLAC 15 MG/1 ML SDV IVP ONE (15:13)
[2016-08-23 15:18] VITALS: BP 110/67; PULSE 88; O2SAT 94
== END 2016-08-23 15:19 | disposition home or self-care (01) ==
DX: R10.84 Generalized abdominal pain (principal)
CPT/HCPCS: 96374; J1885

== ENCOUNTER 2016-08-25 11:49 | Emergency (ER) | payer MEDICAID ==
[2016-08-25 11:55] VITALS: BP 118/77; PULSE 88; RESP 18; TEMP 98.2; O2SAT 97
--- NOTE | 2016-08-25 13:12 | EDPHY ---
H & P Stated Complaint: cough not responding to otc meds HPI/ROS: HPI CHIEF COMPLAINT: Sore throat, nasal congestion, cough HISTORY OF PRESENT ILLNESS: This patient very pleasant 26-year-old female significant past medical history for chronic abdominal pain, gastritis, sinusitis, presents emergency room with a sore throat times 48 hours, no fever, upper respiratory tract infection type symptoms, with nasal congestion postnasal drip and a nonproductive cough. She denies chest pain or shortness of breath. Tells me her throat is hurting her and she has a nagging dry cough. No history of PE, DVT, no history of cardiac disease. No underlying lung disease. Past Medical History: Chronic abdominal pain, gastritis, sinusitis Past Surgical History: No recent surgical history Social History: Denies daily use of drugs alcohol tobacco products, smokes marijuana occasionally Family History: Noncontributory ROS REVIEW OF SYSTEMS: A comprehensive 10 point review of systems is otherwise negative aside from elements mentioned in the history of present illness. Exam Constitutional appears well nontoxic, triage nursing summary reviewed, vital signs reviewed, awake/alert. Normal vital signs. Eyes normal conjunctivae and sclera, EOMI, PERRLA. HENT posterior pharynx: No exudate, normal inspection, atraumatic, moist mucus membranes, no epistaxis, neck supple/ no meningismus, no raccoon eyes. Respiratory dry cough, clear to auscultation bilaterally, normal breath sounds , no respiratory distress, no wheezing. Cardiovascular rate normal, regular rhythm, no murmur, no edema, distal pulses normal. Gastrointestinal soft, non-tender, no rebound, no guarding, normal bowel sounds, no distension, no pulsatile mass. Genitourinary no CVA tenderness. Musculoskeletal no midline vertebral tenderness, full range of motion, no calf swelling, no tenderness of extremities, no meningismus, good pulses, neurovascularly intact. Skin pink, warm, & dry, no rash, skin atraumatic. Neurologic awake, alert and oriented x 3, AAOx3, moves all 4 extremities equally, motor intact, sensory intact, CN II-XII intact, normal cerebellar, normal vision, normal speech. Psychiatric normal mood/affect. Heme/Lymph/Immune no lymphadenopathy. Differential Diagnosis: Includes but is not limited to in a particular order, strep pharyngitis, viral pharyngitis, sinusitis, upper respiratory tract infection Medical Decision Making: Plan for this patient rapid strep test. Will give albuterol 2 puffs here in the emergency room, Robitussin for cough. Re- evaluate. Re-evaluation: 1337: Rapid strep negative. Patient improved after albuterol inhaler and Robitussin. Resting comfortably vital signs stable. Recommend albuterol inhaler at home, cough medicine, Cepacol throat lozenges. Patient understands return emergency room there is any worsening symptoms questions or concerns. Source: Patient - Personal History LMP (Females 10-55): 1-7 Days Ago Current Tetanus/Diphtheria Vaccine: No Tetanus Vaccine Date: 2005 - Medical/Surgical History Hx Asthma: No Hx Chronic Respiratory Disease: No Hx Diabetes: No Hx Cardiac Disease: No Hx Renal Disease: No Hx Cirrhosis: No Hx Alcoholism: No Hx HIV/AIDS: No Hx Splenectomy or Spleen Trauma: No Other PMH: sinusitis. 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 menstrual cramps/chronic abd pain. fx sacrum in 2008, gastritis, ?endometrosis - Social History Smoking Status: Former smoker Constitutional: Initial Vital Signs Temperature (C) 36.8 C 08/25/16 11:53 Heart Rate 88 08/25/16 11:53 Respiratory Rate 18 08/25/16 11:53 Blood Pressure 118/77 08/25/16 11:53 O2 Sat (%) 97 08/25/16 11:53 O2 Delivery Mode Room Air Allergies/Adverse Reactions: cefaclor [From Ceclor] Allergy (Mild, Verified 08/25/16 11:53) Rash Home Medications: Medication Instructions Recorded Cyclobenzaprine [Flexeril 10 MG 10 mg PO TID PRN #15 tab 08/23/16 (*)] Guaifenesin [Guaifenesin ER] 600 mg PO BID #14 tab.er.12h 08/25/16 Medical Decision Making - Data Points Laboratory Results: 08/25/16 08/25/16 Unknown 12:20 Group A Strep Screen NEGATIVE (NEGATIVE) Group A Strep DNA Pending Departure - Departure Disposition: Home, Routine, Self-Care Clinical Impression: Cough Pharyngitis Qualifiers: Pharyngitis/tonsillitis etiology: other specified organisms Qualified Code(s): J02.8 - Acute pharyngitis due to other specified organisms Condition: Good Instructions: Pharyngitis (ED), Cold Symptoms (ED), Acute Cough (ED) Additional Instructions: 1. Drink lots of fluids. Stay well-hydrated. 2. Return emergency room if there is any worsening symptoms questions or concerns. Referrals: Nancy Farris PA [Primary Care Provider] - As per Instructions Prescriptions: Guaifenesin [Guaifenesin ER] 600 mg PO BID #14 tab.er.12h
[2016-08-25] MEDS ORDERED: guaiFENesin/CODEINE PHOS 10 ML UDCUP PO ONE (13:15)
[2016-08-25] MEDS ORDERED: ALBUTEROL 60 PUFFS/8 GM MDI IH ONE (13:15)
== END 2016-08-25 13:50 | disposition home or self-care (01) ==
DX: R05 Cough (principal); J02.9 Acute pharyngitis, unspecified; Z87.891 Personal history of nicotine dependence

== ENCOUNTER 2016-08-29 06:29 | Emergency (ER) | payer MEDICAID ==
[2016-08-29 06:55] LABS: COLOR PALE YELLOW; LEUKOCYTE ESTERASE,URINE NEGATIVE (NEGATIVE); NITRITE,URINE NEGATIVE (NEGATIVE)
--- NOTE | 2016-08-29 07:06 | EDPHY ---
H & P Time Seen by Provider: 08/29/16 07:05 HPI/ROS: CHIEF COMPLAINT: Right upper quadrant abdominal pain HISTORY OF PRESENT ILLNESS: This patient is a 26-year-old female presents to the Emergency Department with localized right upper quadrant abdominal pain beginning 1.5 weeks prior to arrival. She was seen in this facility last week for the same complaint and had a normal workup at that time. Today, she presents concerned that her pain has remained persistent. She describes it as a deep, throbbing dull ache that remains constant over time without any identified exacerbating or alleviating factors. She denies nausea, vomiting, or diarrhea. She does report a dry cough beginning five days prior to arrival for which she has been evaluated by her PCP. Medical history also includes endometriosis and gastritis. REVIEW OF SYSTEMS: Constitutional: No fever, no chills Eyes: No visual changes ENT: No sore throat Respiratory: +cough, no shortness of breath Cardiac: No chest pain Gastrointestinal: No nausea, no vomiting, +abdominal pain Genitourinary: +urinary frequency, no hematuria, no dysuria Musculoskeletal: No leg pain or swelling Skin: No rash Neurological: No headache, no numbness, no weakness Psychiatric: No depression Past Medical/Surgical History: Chronic abdominal pain, endometriosis, gastritis. Social History: Former smoker. No alcohol use. Smoking Status: Former smoker Physical Exam: General Appearance: Alert, no distress Eyes: Pupils equal and round, no conjunctival pallor or injection ENT, Mouth: Mucous membranes moist Neck: Normal inspection Respiratory: Lungs are clear to auscultation Chest: Point tenderness over the right anterior lower ribs Cardiovascular: Regular rate and rhythm Gastrointestinal: Abdomen is soft and non- tender Neurological: A&O, nonfocal, normal gait Skin: Warm and dry, no rash Extremities: Nontender, no pedal edema Psychiatric: Mood and affect normal Constitutional: Initial Vital Signs Temperature (C) 36.6 C 08/29/16 06:33 Heart Rate 77 08/29/16 06:33 Respiratory Rate 20 08/29/16 06:33 Blood Pressure 118/70 08/29/16 06:33 O2 Sat (%) 96 08/29/16 06:33 O2 Delivery Mode Room Air Allergies/Adverse Reactions: cefaclor [From Ceclor] Allergy (Mild, Verified 08/29/16 06:33) Rash Medical Decision Making ED Course/Re-evaluation: 26-year-old female presents with complaint of what appears to be musculoskeletal pain localized to her anterior right lower ribs. She has no additional complaints; no nausea, vomiting, diarrhea. She has had a cough over the past five days. On exam, she is alert and well-appearing. She has point tenderness to her right anterior ribs. Her abdomen is soft with no tenderness to palpation. Her lungs are clear to auscultation. Will proceed with basic labs and subsequent reevaluation. Labs reviewed: Chemistries are within normal ranges. WBC is slightly elevated at 12.34 consistent with patient's report of recent upper respiratory infection. I do not suspect PE in this pt with normal VS and no RF for PE. Resolving URI, no clinical suspicion of pneumonia. I discussed lab and UA results with the patient, who is relieved. I recommended that she treat her musculoskeletal pain with Tylenol and follow-up with her PCP this week if pain persists. She is agreeable to this and will be discharged home in good condition. Differential Diagnosis: includes though not limited to acute hepatitis, gastritis, cholecystitis, PE, pneumonia - Data Points Laboratory Results: Laboratory Results 08/29/16 06:52 08/29/16 06:52 08/29/16 08/29/16 08/29/16 06:52 06:52 06:52 WBC 12.34 10^3/uL H 10^3/uL (3.80-9.50) RBC 4.08 10^6/uL L 10^6/uL (4.18-5.33) Hgb 12.6 g/dL g/dL (12.6-16.3) Hct 37.5 % L % (38.0-47.0) MCV 91.9 fL fL (81.5-99.8) MCH 30.9 pg pg (27.9-34.1) MCHC 33.6 g/dL g/dL (32.4-36.7) RDW 12.6 % % (11.5-15.2) Plt Count 263 10^3/uL 10^3/uL (150-400) MPV 10.8 fL fL (8.7-11.7) Neut % (Auto) 72.6 % % (39.3-74.2) Lymph % (Auto) 20.5 % % (15.0-45.0) [place] % (Auto) 6.1 % % (4.5-13.0) Eos % (Auto) 0.3 % L % (0.6-7.6) Baso % (Auto) 0.2 % L % (0.3-1.7) Nucleat RBC Rel Count 0.0 % % (0.0-0.2) Absolute Neuts (auto) 8.95 10^3/uL H 10^3/uL (1.70-6.50) Absolute Lymphs (auto) 2.53 10^3/uL 10^3/uL (1.00-3.00) Absolute Monos (auto) 0.75 10^3/uL 10^3/uL (0.30-0.80) Absolute Eos (auto) 0.04 10^3/uL 10^3/uL (0.03-0.40) Absolute Basos (auto) 0.03 10^3/uL 10^3/uL (0.02-0.10) Absolute Nucleated RBC 0.00 10^3/uL 10^3/uL (0-0.01) Immature Gran % 0.3 % % (0.0-1.1) Immature Gran # 0.04 10^3/uL 10^3/uL (0.00-0.10) Sodium 138 mEq/L mEq/L (134-144) Potassium 3.9 mEq/L mEq/L (3.5-5.2) Chloride 108 mEq/L mEq/L (97-110) Carbon Dioxide 19 mEq/l L mEq/l (22-31) Anion Gap 11 mEq/L mEq/L (8-16) BUN 13 mg/dL mg/dL (7-23) Creatinine 0.6 mg/dL mg/dL (0.6-1.0) Estimated GFR > 60 Glucose 90 mg/dL mg/dL (70-100) Calcium 9.4 mg/dL mg/dL (8.5-10.4) Total Bilirubin 0.6 mg/dL mg/dL (0.1-1.4) Conjugated Bilirubin 0.4 mg/dL mg/dL (0.0-0.5) Unconjugated Bilirubin 0.2 mg/dL mg/dL (0.0-1.1) AST 14 IU/L IU/L (14-46) ALT 22 IU/L IU/L (9-52) Alkaline Phosphatase 40 IU/L IU/L (38-126) Total Protein 7.4 g/dL g/dL (6.3-8.2) Albumin 4.4 g/dL g/dL (3.5-5.0) Lipase 55.0 IU/L IU/L (23-300) Beta HCG, Qual NEGATIVE Urine Color Urine Appearance Urine pH Ur Specific [place] Urine Protein Urine Ketones Urine Blood Urine Nitrate Urine Bilirubin Urine Urobilinogen Ur Leukocyte Esterase Urine Glucose 08/29/16 06:40 WBC RBC Hgb Hct MCV MCH MCHC RDW Plt Count MPV Neut % (Auto) Lymph % (Auto) [place] % (Auto) Eos % (Auto) Baso % (Auto) Nucleat RBC Rel Count Absolute Neuts (auto) Absolute Lymphs (auto) Absolute Monos (auto) Absolute Eos (auto) Absolute Basos (auto) Absolute Nucleated RBC Immature Gran % Immature Gran # Sodium Potassium Chloride Carbon Dioxide Anion Gap BUN Creatinine Estimated GFR Glucose Calcium Total Bilirubin Conjugated Bilirubin Unconjugated Bilirubin AST ALT Alkaline Phosphatase Total Protein Albumin Lipase Beta HCG, Qual Urine Color PALE YELLOW Urine Appearance CLEAR Urine pH 7.0 (5.0-7.5) Ur Specific [place] 1.005 (1.002-1.030) Urine Protein NEGATIVE (NEGATIVE) Urine Ketones NEGATIVE (NEGATIVE) Urine Blood NEGATIVE (NEGATIVE) Urine Nitrate NEGATIVE (NEGATIVE) Urine Bilirubin NEGATIVE (NEGATIVE) Urine Urobilinogen NEGATIVE EU EU (0.2-1.0) Ur Leukocyte Esterase NEGATIVE (NEGATIVE) Urine Glucose NEGATIVE (NEGATIVE) Departure - Departure Disposition: Home, Routine, Self-Care Clinical Impression: Musculoskeletal chest pain Condition: Good Instructions: Chest Wall Pain (ED) Additional Instructions: 1. Follow-up with your primary care provider in 2-3 days for reevaluation if your pain persists. 2. Take 650mg Tylenol every 4-6 hours as needed for pain. 3. Return to the Emergency Department if you experience severe pain, difficulty breathing, uncontrollable nausea or vomiting, high fever, or for other serious concerns. Referrals: Nancy Farris PA [Primary Care Provider] - As per Instructions Report Scribed for: Jessica Raygoza Report Scribed by: Ladi Morgan Date of Report: 08/29/16 Time of Report: 07:05 Physician Review and Approval Statement: 08/29/16 07:05 Portions of this note were transcribed by a medical liaison. I personally performed a history, physical exam, medical decision making, and confirmed accuracy of information the transcribed note.
[2016-08-29 07:09] LABS: % IMMATURE GRANULYOCYTES 0.3 % (0.0-1.1); ABSOLUTE IMMATURE GRANULOCYTES 0.04 10^3/uL (0.00-0.10); ADD DIFF? NO; ADD MORPH? NO; ADD SCAN? NO; ATYPICAL LYMPHOCYTE FLAG 0 (0-99); FRAGMENT RBC FLAG 0 (0-99); HEMATOCRIT 37.5 % (38.0-47.0); HEMOGLOBIN 12.6 g/dL (12.6-16.3); LEFT SHIFT FLG 0 (0-99); LIPEMIA HEMOLYSIS FLAG 80 (0-99); MEAN CELL HEMOGLOBIN 30.9 pg (27.9-34.1); MEAN CELL HEMOGLOBIN CONCENTR. 33.6 g/dL (32.4-36.7); MEAN CELL VOLUME 91.9 fL (81.5-99.8); MEAN PLATELET VOLUME 10.8 fL (8.7-11.7); PLATELET CLUMPS FLAG 0 (0-99); PLATELET COUNT 263 10^3/uL (150-400); RED BLOOD CELL COUNT 4.08 10^6/uL (4.18-5.33); RED CELL DISTRIBUTION WIDTH 12.6 % (11.5-15.2)
[2016-08-29 07:19] LABS: ALANINE AMINOTRANSFERASE 22 IU/L (9-52); ALBUMIN 4.4 g/dL (3.5-5.0); ALKALINE PHOSPHATASE 40 IU/L (38-126); ANION GAP 11 mEq/L (8-16); ASPARTATE AMINOTRANSFERASE 14 IU/L (14-46); BILIRUBIN,TOTAL 0.6 mg/dL (0.1-1.4); BILIRUBIN-CONJUGATED 0.4 mg/dL (0.0-0.5); BILIRUBIN-UNCONJUGATED 0.2 mg/dL (0.0-1.1); CALCIUM 9.4 mg/dL (8.5-10.4); CARBON DIOXIDE 19 mEq/l (22-31); CHLORIDE 108 mEq/L (97-110); CREATININE 0.6 mg/dL (0.6-1.0); GLOMERULAR FILTRATION RATE > 60; GLUCOSE 90 mg/dL (70-100); POTASSIUM 3.9 mEq/L (3.5-5.2); SODIUM 138 mEq/L (134-144); TOTAL PROTEIN 7.4 g/dL (6.3-8.2)
[2016-08-29 07:44] VITALS: BP 115/90; PULSE 78; RESP 18; TEMP 98.4; O2SAT 98
== END 2016-08-29 07:42 | disposition home or self-care (01) ==
DX: R07.89 Other chest pain (principal); Z87.891 Personal history of nicotine dependence

== ENCOUNTER 2016-12-06 08:23 | Emergency (ER) | payer MEDICAID ==
[2016-12-06 08:33] VITALS: BP 103/83; PULSE 96; RESP 16; TEMP 98.2; O2SAT 96
--- NOTE | 2016-12-06 09:15 | EDPHY ---
H & P Stated Complaint: Had breast reduction in [place] 10/12/16;wants breasts checked for infection Source: Patient, RN/MD Exam Limitations: No limitations - Personal History LMP (Females 10-55): 22-28 Days Ago Current Tetanus Diphtheria and Acellular Pertussis (TDAP): Unsure Tetanus Vaccine Date: 2005 - Medical/Surgical History Hx Asthma: No Hx Chronic Respiratory Disease: No Hx Diabetes: No Hx Cardiac Disease: No Hx Renal Disease: No Hx Cirrhosis: No Hx Alcoholism: No Hx HIV/AIDS: No Hx Splenectomy or Spleen Trauma: No Other PMH: sinusitis. 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 menstrual cramps/chronic abd pain. fx sacrum in 2008, gastritis, ?endometrosis - Social History Smoking Status: Former smoker HPI/ROS: CHIEF COMPLAINT: Pain on surgical incision, breast pain HISTORY OF PRESENT ILLNESS: Patient complains of several days history of burning sensation and pain. This is along incisions from breast reduction. Surgery was October 12, 2016. She has done well on seeing her surgeon twice postoperatively. She has been to physical therapy. She feels as though the pain and burning sensation have worsened over the past 2 days. She feels this may be related to stress and more activity work. She has no trauma or injury. No fever chills. No chest pain or shortness of breath. The pain is worse with palpation and movement. No fever chills. She contacted the surgeon last week and they called in a prescription. She never filled that due to lack of transportation. No other associated complaints or modifying factors. REVIEW OF SYSTEMS: Ten systems reviewed and are negative unless otherwise noted in the HPI PAST MEDICAL HISTORY: Back pain. PAST SURGICAL HISTORY: Breast reduction October 12, 2016. Dr. Polk at [facility] SOCIAL HISTORY: Nonsmoker. Occasional alcohol. Lives here in [place]. 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 No wheeze, rhonchi or crackles Cardiovascular: Regular rate and rhythm. No murmur Breasts: Status post breast reduction with Areola reconstruction. Skin examination as below. No fluctuance, induration or cellulitis. 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 Surgical incisions on inferior aspect of the bilateral breast are clean, dry and intact. There is no purulence. No fluctuance. Minimal induration. There is mild hyperemia of the incision. Areolas are surgically removed with reconstruction and without any signs of infection, bleeding or dehiscence. DIFFERENTIAL DIAGNOSES: Including but not limited to postoperative pain, surgical site infection, postoperative complication, neuropathic pain MDM: 9:10 a.m. Complaints of pain and burning sensation along the entire surgical incision from breast reduction on October 12. This pain is completely reproducible. I do not appreciate any fluctuance, cellulitis or evidence of infection. I do not have suspicion for PE given the reproducibility of the pain and normal vital signs. I will discuss with her surgeon. She is in no acute distress with normal vital signs 9:28 a.m. Case discussed with Dr. Fantasma Coppola, the surgeon on-call for the patient's surgeon. We discussed her surgery, history and examination. He agrees that if I do not appreciate any infection that we should not place her on Keflex. He agrees the patient should follow up on as previously arranged. 9:47 a.m. Postoperative pain without evidence of infection. I do not appreciate any evidence of PE given her vitals and reproducibility of pain. She is comfortable with the above plan. Discharged home with instructions to take ibuprofen 600 mg every 8 hours or Aleve twice daily. She is to keep her appointment on with her surgeon. ED precautions discussed. Discharged home stable condition (Ilia Faye) Constitutional: Initial Vital Signs Temperature (C) 36.8 C 12/06/16 08:25 Heart Rate 96 12/06/16 08:25 Respiratory Rate 16 12/06/16 08:25 Blood Pressure 103/83 H 12/06/16 08:25 O2 Sat (%) 96 12/06/16 08:25 O2 Delivery Mode Room Air Allergies/Adverse Reactions: cefaclor [From Ceclor] Allergy (Mild, Verified 12/06/16 08:24) Rash Home Medications: Medication Instructions Recorded tiZANidine HCL [Zanaflex 2MG (*)] 2 mg PO 12/06/16 Medical Decision Making ED Course/Re-evaluation: The patient was evaluated and managed by the physician market research assistant. I have reviewed this chart and I agree with the findings and plan of care as documented , as indicated by my signature. I am the secondary supervising physician. ( Erlinda Fairbanks) Departure - Departure Disposition: Home, Routine, Self-Care Clinical Impression: Post-operative pain, Breast pain in female Condition: Good Instructions: Surgical Site Infections (ED) Additional Instructions: 1. Ibuprofen 600 mg every 8 hours or Aleve 1-2 pills twice daily 2. Keep your appointment with your surgeon on 3. ED precautions for worsening pain, any chest pain, exertional pain, shortness of breath, redness, purulence or fever Referrals: CARMELO SOLOMON [Other] - As per Instructions
== END 2016-12-06 09:54 | disposition home or self-care (01) ==
DX: N64.4 Mastodynia (principal); G89.18 Other acute postprocedural pain; Z87.891 Personal history of nicotine dependence

== ENCOUNTER 2017-01-09 09:50 | Emergency (ER) | payer MEDICAID ==
--- NOTE | 2017-01-09 10:22 | EDPHY ---
H & P Stated Complaint: neck pain/stiffness x 3 days no trauma Time Seen by Provider: 01/09/17 10:19 HPI/ROS: Chief Complaint: Neck pain HPI: 26-year-old woman with a history of chronic neck and back pain presenting with worsening pain in her central and bilateral neck for the last 2 days. Patient states her neck started getting worsening stiffness at work on Tuesday. She worked yesterday but continued to have pain. Patient states today that she has continued have worsening pain after sleeping on it and was unable to go to work. She has been taking ibuprofen 800 mg of Tylenol. She has been seeing physical therapy this and is scheduled for an MRI in the near future for her entire back. No new numbness or weakness. Not dropping any objects. No new falls or traumas. No headache. ROS: 10 point Review of Systems is negative except as noted in the HPI. PMH: Chronic neck and back pain, endometriosis Social History: occasional alcohol Family History: non-contributory Physical Exam: Gen: Awake, Alert, No Distress HEENT: Nose: no rhinorrhea Eyes: PERRLA, EOMI Mouth: Moist mucosa Neck: Bilateral paraspinal tenderness with no midline step-offs. Decreased range of motion secondary to pain, noted bilateral muscle spasm Back: no CVA tenderness, no midline tenderness bilateral paraspinal tenderness Ext: no edema, non-tender Skin: no rash Neuro: CN II-XII intact, Sensation grossly intact, Strength 5/5 in bilateral upper and lower extremities - Personal History LMP (Females 10-55): 8-14 Days Ago Current Tetanus/Diphtheria Vaccine: Unsure Current Tetanus Diphtheria and Acellular Pertussis (TDAP): Unsure Tetanus Vaccine Date: 2005 - Medical/Surgical History Hx Asthma: No Hx Chronic Respiratory Disease: No Hx Diabetes: No Hx Cardiac Disease: No Hx Renal Disease: No Hx Cirrhosis: No Hx Alcoholism: No Hx HIV/AIDS: No Hx Splenectomy or Spleen Trauma: No Other PMH: sinusitis. herpes, R ingiunal hernia. fx sacrum in 2008, gastritis, ?endometrosis, breat reduction - Social History Smoking Status: Former smoker Constitutional: Initial Vital Signs Temperature (C) 37.0 C 01/09/17 09:54 Heart Rate 88 01/09/17 09:54 Respiratory Rate 16 01/09/17 09:54 Blood Pressure 109/68 01/09/17 09:54 O2 Sat (%) 97 01/09/17 09:54 Allergies/Adverse Reactions: cefaclor [From Ceclor] Allergy (Mild, Verified 12/06/16 08:24) Rash Home Medications: Medication Instructions Recorded Bactrim DS 01/09/17 Cyclobenzaprine [Flexeril 10 MG 10 mg PO TID PRN #15 tab 01/09/17 (*)] Medical Decision Making ED Course/Re-evaluation: 26-year-old with musculoskeletal neck pain. She has a history of chronic pain. I believe she is an exacerbation. She has no red flags for acute neurologic process. She is completely neurologically intact. She has reproducible tenderness bilaterally. She has had no traumas. Will discharge with follow-up as an outpatient, symptomatic treatment. Departure - Departure Disposition: Home, Routine, Self-Care Clinical Impression: Musculoskeletal neck pain Condition: Good Instructions: Neck Pain (ED) Additional Instructions: You may apply a Lidoderm patch available [id number] daily. Continue taking ibuprofen 600 mg 3 times a day and acetaminophen. You may take Flexeril as needed for muscle relaxation. Follow up with your physical therapist and primary care physician in 2-3 days as scheduled. Return to the emergency depart for numbness, weakness, worsening pain, or any other concerns. Referrals: Nancy Farris PA [Primary Care Provider] - As per Instructions Prescriptions: Cyclobenzaprine [Flexeril 10 MG (*)] 10 mg PO TID PRN #15 tab PRN Reason: Spasms
[2017-01-09] MEDS ORDERED: CYCLOBENZAPRINE 10MG PREPACK#3 BTL TAKEHOME ONE (10:42)
[2017-01-09] MEDS ORDERED: LIDOCAINE 5% 1 EA PATCH TD SCH (10:45)
[2017-01-09 11:10] VITALS: BP 113/85; PULSE 69; RESP 18; TEMP 98.6; O2SAT 96
--- NOTE | 2017-01-09 14:20 | ASDISCHSUM ---
Discharge Information Plan Status:Home with No Needs Medically Cleared to Leave: Discharge Date:01/09/2017 11:09 AM CM D/C Disposition:Home, Routine, Self-Care ADT D/C Disposition:Home, Routine, Self-Care Projected Discharge Date:01/09/2017 11:09 AM Transportation at D/C:Self Discharge Delay Reason: Follow-Up Date:01/09/2017 11:09 AM Discharge Slot: Final Diagnosis: Placement Information Patient Contact Information Contact Name:KOTA Relationship:Mother Address: Work Phone: City: [facility] Phone: State/Zip Code: Email: Financial Information Financial Class: Primary Plan Desc:MEDICAID [facility] 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 Patient here for neck and back pain. Patient reports she has an MRI scheduled in the near future. Patient was discharged from the ED with a prescription for Flexeril with instructions to continue to follow-up with PT and w/her PCP, Nancy Farris at [facility]. This CM called [facility] and left a voicemail notifying the team of patient's ED visit and need for follow-up appointment. Date Signed: 01/09/2017 02:19 PM Electronically Signed By:Hortencia Hyatt RN Intervention Information
--- NOTE | 2017-01-09 14:20 | ASDISCHSUM ---
Discharge Information Plan Status:Home with No Needs Medically Cleared to Leave: Discharge Date:01/09/2017 11:09 AM CM D/C Disposition:Home, Routine, Self-Care ADT D/C Disposition:Home, Routine, Self-Care Projected Discharge Date:01/09/2017 11:09 AM Transportation at D/C:Self Discharge Delay Reason: Follow-Up Date:01/09/2017 11:09 AM Discharge Slot: Final Diagnosis: Placement Information Patient Contact Information Contact Name:KOTA Relationship:Mother Address: Work Phone: City: [facility] Phone: State/Zip Code: Email: Financial Information Financial Class: Primary Plan Desc:MEDICAID [facility] FIRST OFFSET [employer]ING [employer] Primary Plan Number:[id number] Secondary Plan Desc: Secondary Plan Number: Assessment Information LACE LACE Emergency dept visits in Answers: 4+ last 6 months Score: 4 Date Signed: 01/09/2017 02:05 PM Electronically Signed By:Hortencia Hyatt RN [facility] CM Progress Note CM Note CM Note Notes: Reviewed chart due to Narcotic Caution / High Utilizer ED CM notes. Patient here for neck and back pain. Patient reports she has an MRI scheduled in the near future. Patient was discharged from the ED with a prescription for Flexeril with instructions to continue to follow-up with PT and w/her PCP, Nancy Farris at [facility]. This CM called [facility] and left a voicemail notifying the team of patient's ED visit and need for follow-up appointment. Date Signed: 01/09/2017 02:19 PM Electronically Signed By:Hortencia Hyatt RN Intervention Information
--- NOTE | 2017-01-09 14:20 | ASDISCHSUM ---
Discharge Information Plan Status:Home with No Needs Medically Cleared to Leave: Discharge Date:01/09/2017 11:09 AM CM D/C Disposition:Home, Routine, Self-Care ADT D/C Disposition:Home, Routine, Self-Care Projected Discharge Date:01/09/2017 11:09 AM Transportation at D/C:Self Discharge Delay Reason: Follow-Up Date:01/09/2017 11:09 AM Discharge Slot: Final Diagnosis: Placement Information Patient Contact Information Contact Name:KOTA Relationship:Mother Address: Work Phone: City: [facility] Phone: State/Zip Code: Email: Financial Information Financial Class: Primary Plan Desc:MEDICAID [facility] 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 Patient here for neck and back pain. Patient reports she has an MRI scheduled in the near future. Patient was discharged from the ED with a prescription for Flexeril with instructions to continue to follow-up with PT and w/her PCP, Nancy Farris at [facility]. This CM called [facility] and left a voicemail notifying the team of patient's ED visit and need for follow-up appointment. Date Signed: 01/09/2017 02:19 PM Electronically Signed By:Hortencia Hyatt RN Intervention Information
== END 2017-01-09 11:09 | disposition home or self-care (01) ==
DX: M54.2 Cervicalgia (principal); Z87.891 Personal history of nicotine dependence